=== PATIENT | male | born 1995 | race Caucasian/White ===

== ENCOUNTER 2021-01-01 15:26 | Outpatient (REF) | payer OTHER, SELFPAY ==
--- NOTE | ~2021-01-01 | XR_ITS ---
EXAMINATION: LEFT LOWER LEG AND ANKLE X-RAY CLINICAL INFORMATION: Injury COMPARISON: None TECHNIQUE: 2 views of the left lower leg and 3 views of the left ankle FINDINGS: Left lower leg: Bone alignment is normal. No fracture or dislocation is seen. Joint spaces are normal. Soft tissues are normal. Left ankle: Bone alignment is normal. No fracture or dislocation is seen. The ankle mortise is normal. Soft tissues are normal. XR/XR ankle LT min 3V IMPRESSION: Unremarkable exam.
--- NOTE | ~2021-01-01 | XR_ITS ---
EXAMINATION: LEFT LOWER LEG AND ANKLE X-RAY CLINICAL INFORMATION: Injury COMPARISON: None TECHNIQUE: 2 views of the left lower leg and 3 views of the left ankle FINDINGS: Left lower leg: Bone alignment is normal. No fracture or dislocation is seen. Joint spaces are normal. Soft tissues are normal. Left ankle: Bone alignment is normal. No fracture or dislocation is seen. The ankle mortise is normal. Soft tissues are normal. XR/XR tibia fibula LT 2V IMPRESSION: Unremarkable exam.
== END 2021-01-01 15:27 | disposition home or self-care (01) ==
LOC: HO.HMGCX 15:26
PROVIDERS: PCP Physician Assistant; Visit Provider Nurse Practitioner Family
DX: M79.606 Pain in leg, unspecified (principal); S99.919A Unspecified injury of unspecified ankle, initial encounter
CPT/HCPCS: 73590; 73610

== ENCOUNTER 2023-03-03 14:19 | Outpatient (REF) | payer OTHER, SELFPAY ==
[2023-03-03 14:42] LABS: MANUAL DIFF FLAG NO
[2023-03-03 15:30] LABS: Basophils Absolute Auto 0.1 X10*3/uL (0.0-0.2); Basophils Percent Auto 0.6 % (0-2); Eosinophils Absolute Auto 0.8 X10*3/uL (0.0-0.4); Hematocrit 46.5 % (42.0-52.0); Hemoglobin 15.5 g/dl (14.0-18.0); Imm Gran Abs Auto 0.03 X10*3/uL (0.00-0.03); Imm Gran Pct Auto 0.3 % (0.0-0.4); Lymphocytes Absolute Auto 2.2 X10*3/uL (1.2-4.9); Lymphocytes Percent Auto 21.9 % (20-40); Mean Corpuscular HGB Conc 33.3 g/dl (31.0-36.0); Mean Corpuscular Hemoglobin 32.2 pg (27.0-33.0); Mean Corpuscular Volume 96.7 fL (80.0-98.0); Mean Platelet Volume 10.8 fL (9.4-12.4); Monocytes Absolute Auto 0.6 X10*3/uL (0.1-1.2); Monocytes Percent Auto 6.2 % (2-11); Neutrophils Absolute Auto 6.2 x10*3/uL (2.0-8.3); Platelet Count 325 X10*3/uL (160-400); Red Blood Count 4.81 X10*6/uL (4.60-5.80); Red Cell Distribution Width 12.3 % (11.0-16.0); White Blood Count 9.9 X10*3/uL (4.8-10.8)
[2023-03-03 16:04] LABS: Alanine Aminotransferase 62 U/L (0-40); Albumin Level 4.2 g/dL (3.5-5.0); Alkaline Phosphatase 86 U/L (39-117); Anion Gap 14 (12-20); Aspartate Amino Transferase 35 U/L (5-37); Bilirubin Total 0.9 mg/dL (0.0-1.0); Blood Urea Nitrogen 8 mg/dL (9-16); Calcium 9.4 mg/dL (8.4-10.2); Carbon Dioxide 28 mmol/L (22-29); Chloride 107 mmol/L (96-108); Cholesterol 373 mg/dL; Estimated Glomerular Filt Rate > 60; Glucose Random 92 mg/dL (60-115); Potassium 5.2 mmol/L (3.3-5.1); Sodium 144 mmol/L (135-145); Total Protein 6.8 g/dL (6.5-8.0)
[2023-03-03 16:20] LABS: TSH reflex Free T4 1.08 uIU/mL (0.32-4.0)
== END 2023-03-03 14:20 | disposition home or self-care (01) ==
LOC: HO.LAB 14:19
PROVIDERS: PCP Physician Assistant; Visit Provider Nurse Practitioner Family
DX: Z13.0 Encounter for screening for diseases of the blood and blood-forming organs and certain disorders involving the immune mechanism (principal); Z13.220 Encounter for screening for lipoid disorders; Z13.29 Encounter for screening for other suspected endocrine disorder; K21.9 Gastro-esophageal reflux disease without esophagitis
CPT/HCPCS: 36415; 80053; 82465; 84443; 85025